=== PATIENT | female | born 1960 | race Caucasian/White ===

== ENCOUNTER → 2017-12-12 10:40 | Outpatient (CLI) | payer BC, SELFPAY ==
[2017-12-12 12:10] LABS: Absolute Lymphocyte Count 1.42 X10^3/ul (0.83-4.51); Absolute Neutrophil Count 3.5 X10^3/uL (2.0-7.7); Basophil# 0.04 X10^3/uL; Basophil% 0.7 % (0-1); Eosinophil# 0.24 X10^3/uL; Eosinophils% 4.3 % (0-5); Hematocrit 42.4 % (37-47); Hemoglobin 14.1 g/dl (12.0-15.0); Lymphocyte # 1.42 X10^3/ul (4.0); Lymphocyte % 25.4 % (19-41); Mean Corp Hgb Conc 33.3 g/gl (32-36); Mean Corpuscular Volume 84.3 fL (81-99); Mean Platelet Vol. 11.1 fl (6.2-12.0); Monocyte% 7.2 % (0-10); Neutrophil # 3.48 X10^3/uL (2.7-7.7); Neutrophil % 62.2 % (47-70); Platelet Count 282 K/mm3 (150-450); RBC Distribution Width CV 14.8 % (11.6-14.6); RBC Distribution Width SD 44.6 fl (35.1-43.9); Red Blood Count 5.03 M/mm3 (4.2-5.4); White Blood Count 5.6 K/mm3 (4.4-11.0)
[2017-12-12 12:13] LABS: POSITIVE COUNT NO; POSITIVE DIFFERENTIAL NO; POSITIVE MORPHOLOGY NO
[2017-12-12 12:14] LABS: Erythrocyte Sedimentation Rate 8 mm/hr (0-30)
[2017-12-12 12:44] LABS: CRP 4.51 mg/L (0.0-3.0); Hemoglobin A1c 5.8 % (4.2-6.3); Rheumatoid Factor < 10.0 IU/mL (<15); T4 Free Direct 1.02 ng/dL (0.76-1.46); Thyroid Stim Hormone (TSH) 1.64 uIU/mL (0.358-3.74)
[2017-12-12 12:46] LABS: Vitamin B12 625 pg/mL (211-911); Vitamin D,25 Hydroxy 29.8 ng/mL (29.95-100.01)
[2017-12-14 11:07] LABS: ANTINUCLEAR ANTIBODIES DIRECT Negative (Negative)
[2017-12-14 12:35] LABS: CCP IgG Antibodies 6 units (0-19)
== END ==
PROVIDERS: Visit Provider Family Medicine
DX: M06.4 Inflammatory polyarthropathy (principal); R73.01 Impaired fasting glucose; G62.9 Polyneuropathy, unspecified
CPT/HCPCS: 36415; 82306; 82607; 83036; 84439; 84443; 85025; 85652; 86038; 86140; 86200; 86225; 86235; 86431

== ENCOUNTER → 2018-08-16 | Outpatient (CLI) | payer BC, SELFPAY ==
--- NOTE | 2018-08-16 12:30 | RAD_ITS ---
STUDY: X-RAY CHEST REASON FOR EXAM: Female, 58 years old. Right-sided pleuritic chest pain TECHNIQUE: PA and lateral views of the chest. COMPARISON: None. FINDINGS: The lungs are clear and expanded. There is no demonstrated pleural abnormality. Normal size heart. Normal mediastinum and colt. Normal visualized pulmonary arteries. Normal visualized aortic arch and descending thoracic aorta. Normal visualized thoracic spine. Normal visualized ribs, clavicles, and shoulders. There is no demonstrated abnormality of the visualized soft tissue structures of the upper abdomen. RAD/Chest PA and Lateral IMPRESSION: Normal x-ray examination of the chest. Electronically Signed: Hong Simmons MD at 17:47 EDT , Service support ,
== END | disposition home or self-care (01) ==
LOC: MTRAD 12:26
PROVIDERS: Family Provider Family Medicine; PCP Family Medicine; Referring Provider Family Medicine; Visit Provider Family Medicine
DX: R07.9 Chest pain, unspecified (principal); R05 Cough
CPT/HCPCS: 71046

== ENCOUNTER → 2019-11-17 13:51 | Outpatient (CLI) | payer BC, SELFPAY ==
[2019-11-17 15:24] LABS: Absolute Lymphocyte Count 1.69 X10^3/uL (0.83-4.51); Absolute Neutrophil Count 6.1 X10^3/uL (2.0-7.7); Basophil# 0.04 X10^3/uL; Basophil% 0.5 % (0-1); Eosinophil# 0.36 X10^3/uL; Eosinophils% 4.1 % (0-5); Hematocrit 44.4 % (37-47); Hemoglobin 14.1 g/dL (12.0-15.0); Lymphocyte # 1.69 X10^3/ul (4.0); Lymphocyte % 19.4 % (19-41); Mean Corp Hgb Conc 31.8 g/dL (32-36); Mean Corpuscular Hgb 26.8 pg (27.0-32.0); Mean Corpuscular Volume 84.3 fL (81-99); Mean Platelet Vol. 10.8 fl (6.2-12.0); Monocyte# 0.55 X10^3/uL; Monocyte% 6.3 % (0-10); NRBC Flagged by Analyzer 0 % (0-5); Neutrophil # 6.05 X10^3/uL (2.7-7.7); Neutrophil % 69.4 % (47-70); Platelet Count 308 K/mm3 (150-450); RBC Distribution Width CV 14.6 % (11.6-14.6); RBC Distribution Width SD 44.5 fl (35.1-43.9); Red Blood Count 5.27 M/mm3 (4.2-5.4); White Blood Count 8.7 K/mm3 (4.4-11.0)
[2019-11-17 15:42] LABS: Erythrocyte Sedimentation Rate 16 mm/hr (0-30)
[2019-11-17 16:02] LABS: CRP 5.64 mg/L (0.0-3.0); Rheumatoid Factor < 10.0 IU/mL (<15); Thyroid Stim Hormone (TSH) 2.18 uIU/mL (0.358-3.74)
[2019-11-19 08:14] LABS: Vitamin D,25 Hydroxy 45.4 ng/mL
[2019-11-19 12:07] LABS: Anti-Centromere B Ab <0.2 AI (0.0-0.9); Anti-Chromatin <0.2 AI (0.0-0.9); Anti-Jo <0.2 AI (0.0-0.9); Anti-Scleroderma-70 AB <0.2 AI (0.0-0.9); RNP Ab <0.2 AI (0.0-0.9); SJOGREN'S Anti-SS-A test < 0.2 AI (0.0-0.9); SJOGREN'S Anti-SS-B test < 0.2 AI (0.0-0.9); Smith Ab <0.2 AI (0.0-0.9)
[2019-11-19 14:38] LABS: Anti-dsDNA Ab <1 IU/mL (0-9)
[2019-11-20 05:11] LABS: CCP IgG Antibodies 7 units (0-19)
== END ==
PROVIDERS: PCP Family Medicine; Visit Provider Family Medicine
DX: M06.4 Inflammatory polyarthropathy (principal); E55.9 Vitamin D deficiency, unspecified; R53.83 Other fatigue
CPT/HCPCS: 36415; 82306; 84443; 85025; 85652; 86140; 86200; 86225; 86235; 86431

== ENCOUNTER → 2021-11-23 | Outpatient (CLI) | payer OTHER, SELFPAY ==
[2021-11-23 12:09] LABS: Absolute Lymphocyte Count 1.38 X10^3/uL (0.83-4.51); Absolute Neutrophil Count 3.5 X10^3/uL (2.0-7.7); Basophil# 0.05 X10^3/uL; Basophil% 0.9 % (0-1); Eosinophil# 0.33 X10^3/uL; Eosinophils% 5.8 % (0-5); Hematocrit 43.2 % (37-47); Hemoglobin 14.4 g/dL (12.0-15.0); Lymphocyte # 1.38 X10^3/ul (0.83-4.51); Lymphocyte % 24.1 % (19-41); Mean Corp Hgb Conc 33.3 g/dL (32-36); Mean Corpuscular Hgb 28.2 pg (27.0-32.0); Mean Corpuscular Volume 84.7 fL (81-99); Mean Platelet Vol. 11.1 fl (6.2-12.0); Monocyte# 0.41 X10^3/uL; Monocyte% 7.2 % (0-10); NRBC Flagged by Analyzer 0 % (0-5); Neutrophil # 3.53 X10^3/uL (2.7-7.7); Neutrophil % 61.7 % (47-70); Platelet Count 298 K/mm3 (150-450); RBC Distribution Width SD 46.4 fl (35.1-43.9); White Blood Count 5.7 K/mm3 (4.4-11.0)
[2021-11-23 12:20] LABS: Anion Gap 5 (5-15); BUN 14 mg/dL (7-18); BUN/Creat Ratio 16.5 RATIO (10-20); Chloride 109 mmol/L (98-107); Creatinine, Serum 0.85 mg/dL (0.55-1.02); EST Glomerular Filtration Rate 72 mL/min (>60); Est Glom Filt Rate - Afr Amer 87 mL/min (>60); Glucose 97 mg/dL (74-106); Potassium 4.4 mmol/L (3.5-5.1); Sodium Level 142 mmol/L (136-145)
[2021-11-23 12:23] LABS: Vitamin D,25 Hydroxy 51.4 ng/mL
== END | disposition home or self-care (01) ==
LOC: BFHLAB 10:01
PROVIDERS: PCP Family Medicine; Visit Provider Family Medicine
DX: I10 Essential (primary) hypertension (principal); R73.01 Impaired fasting glucose; E55.9 Vitamin D deficiency, unspecified
CPT/HCPCS: 36415; 80048; 82306; 85025

== ENCOUNTER → 2022-04-19 | Outpatient (CLI) | payer OTHER, SELFPAY ==
[2022-04-19 12:48] LABS: Absolute Lymphocyte Count 1.61 X10^3/uL (0.83-4.51); Absolute Neutrophil Count 3.8 X10^3/uL (2.0-7.7); Basophil# 0.05 X10^3/uL; Basophil% 0.8 % (0-1); Eosinophil# 0.26 X10^3/uL; Eosinophils% 4.2 % (0-5); Hemoglobin 14.1 g/dL (12.0-15.0); Lymphocyte # 1.61 X10^3/ul (0.83-4.51); Mean Corpuscular Hgb 27.2 pg (27.0-32.0); Mean Corpuscular Volume 84.8 fL (81-99); Mean Platelet Vol. 10.9 fl (6.2-12.0); Monocyte# 0.48 X10^3/uL; Monocyte% 7.7 % (0-10); NRBC Flagged by Analyzer 0 % (0-5); Neutrophil # 3.79 X10^3/uL (2.7-7.7); Neutrophil % 61.1 % (47-70); Platelet Count 295 K/mm3 (150-450); RBC Distribution Width CV 14.6 % (11.6-14.6); RBC Distribution Width SD 45.2 fl (35.1-43.9); Red Blood Count 5.19 M/mm3 (4.2-5.4); White Blood Count 6.2 K/mm3 (4.4-11.0)
[2022-04-19 13:00] LABS: ALB/GLOB Ratio 1.1 RATIO (0.9-2.4); AST(SGOT) 30 U/L (15-37); Alanine Aminotransfer ALT/SGPT 55 U/L (13-56); Albumin, Serum 3.8 g/dL (3.2-5.0); Alkaline Phosphatase 116 U/L (45-117); Anion Gap 6 (5-15); BUN 14 mg/dL (7-18); BUN/Creat Ratio 17.4 RATIO (10-20); Calcium,Total 9.2 mg/dL (8.5-10.1); Chloride 109 mmol/L (98-107); Cholesterol 170 mg/dL (200); Creatinine, Serum 0.81 mg/dL (0.55-1.02); EST Glomerular Filtration Rate 76 mL/min (>60); Est Glom Filt Rate - Afr Amer 92 mL/min (>60); Globulin 3.6 g/dL (2.2-4.2); Glucose 92 mg/dL (74-106); High Density Lipoprotein 51 mg/dL; Potassium 3.9 mmol/L (3.5-5.1); Protein, Total 7.4 g/dL (6.4-8.2); Sodium Level 141 mmol/L (136-145); Triglycerides 160 mg/dL; Very Low Density Lipoprotein 32 mg/dL (5-40)
[2022-04-19 13:25] LABS: Hemoglobin A1c 5.7 % (3.8-5.6)
== END | disposition home or self-care (01) ==
LOC: BIMLAB 10:22
PROVIDERS: PCP Internal Medicine; Referring Provider Internal Medicine; Visit Provider Internal Medicine
DX: I10 Essential (primary) hypertension (principal); R73.03 Prediabetes
CPT/HCPCS: 36415; 80053; 80061; 83036; 85025

== ENCOUNTER → 2023-05-21 | Outpatient (CLI) | payer OTHER, SELFPAY ==
[2023-05-21 12:11] LABS: Absolute Lymphocyte Count 1.35 X10^3/uL (0.83-4.51); Absolute Neutrophil Count 3.9 X10^3/uL (2.0-7.7); Basophil# 0.05 X10^3/uL; Basophil% 0.8 % (0-1); Eosinophil# 0.19 X10^3/uL; Eosinophils% 3.1 % (0-5); Hemoglobin 14.2 g/dL (12.0-15.0); Lymphocyte # 1.35 X10^3/ul (0.83-4.51); Mean Corp Hgb Conc 32.3 g/dL (32-36); Mean Corpuscular Hgb 27.2 pg (27.0-32.0); Mean Corpuscular Volume 84.3 fL (81-99); Mean Platelet Vol. 11.2 fl (6.2-12.0); Monocyte# 0.53 X10^3/uL; Monocyte% 8.6 % (0-10); NRBC Flagged by Analyzer 0 % (0-5); Neutrophil # 3.93 X10^3/uL (2.7-7.7); Neutrophil % 64.2 % (47-70); Platelet Count 294 K/mm3 (150-450); RBC Distribution Width CV 14.6 % (11.6-14.6); Red Blood Count 5.22 M/mm3 (4.2-5.4); White Blood Count 6.1 K/mm3 (4.4-11.0)
[2023-05-21 12:58] LABS: ALB/GLOB Ratio 1.2 RATIO (0.9-2.4); AST(SGOT) 26 U/L (15-37); Alanine Aminotransfer ALT/SGPT 42 U/L (13-56); Albumin, Serum 3.8 g/dL (3.2-5.0); Alkaline Phosphatase 111 U/L (45-117); Anion Gap 5 (5-15); BUN 17 mg/dL (7-18); BUN/Creat Ratio 19.7 RATIO (10-20); Calcium,Total 8.9 mg/dL (8.5-10.1); Chloride 109 mmol/L (98-107); Cholesterol 170 mg/dL (200); Creatinine, Serum 0.86 mg/dL (0.55-1.02); EST Glomerular Filtration Rate 70 mL/min (>60); Est Glom Filt Rate - Afr Amer 85 mL/min (>60); Globulin 3.2 g/dL (2.2-4.2); Glucose 94 mg/dL (74-106); High Density Lipoprotein 52 mg/dL; Potassium 4.1 mmol/L (3.5-5.1); Sodium Level 140 mmol/L (136-145); Triglycerides 152 mg/dL; Very Low Density Lipoprotein 30 mg/dL (5-40)
== END | disposition home or self-care (01) ==
LOC: BIMLAB 10:29
PROVIDERS: PCP Internal Medicine; Referring Provider Internal Medicine; Visit Provider Internal Medicine
DX: I10 Essential (primary) hypertension (principal)
CPT/HCPCS: 36415; 80053; 80061; 85025

== ENCOUNTER 2023-06-27 08:55 | Day surgery (SDC) | payer OTHER, SELFPAY ==
[2023-06-27 09:26] VITALS: BP 132/67; PULSE 76; RESP 18; TEMP 36.7; O2SAT 98; BMI 36.9
[2023-06-27] MEDS: Lactated Ringers 1,000 ML 15 ML IV (09:38)
--- NOTE | 2023-06-27 09:44 | PCM.HP.STD ---
[facility] - General General Date of Admission: 06/27/23 Date of Service: 06/27/23 Chief Complaint: Screening colonoscopy HPI Narrative STUART MCCLURE, is a 63 F who presents today for screening colonoscopy. She has a past medical history of obesity type 2 diabetes and mild gastroesophageal reflux disease. She had a colonoscopy over 10 years ago and it was normal. She comes back in today for screening colonoscopy. She not have any nausea, vomiting or diarrhea. She denies any bleeding per rectum. [facility] Medical History (Updated 06/22/23 @ 14:48 by Ev Medley) Wears glasses Post-menopausal Restless legs Back pain Leg cramps Non-smoker Hypertension History of hiatal hernia Health care maintenance Hypersomnolence Colon cancer screening Obesity (BMI 30-39.9) Borderline type 2 diabetes mellitus Pelvic floor repair affecting GERD (gastroesophageal reflux disease) Home Medications ?Medication ?Instructions ?Recorded ?Last Taken ?Type calcium carbonate (Calcium 600) 600 mg PO DAILY 04/19/22 06/23/23 History cholecalciferol (vitamin D3) 50 50 mcg PO DAILY 04/19/22 06/23/23 History mcg (2,000 unit) capsule multivitamin (Daily Multi-Vitamin 1 tab PO DAILY 04/19/22 06/23/23 History tablet) amlodipine 10 mg tablet 10 mg PO DAILY #90 tabs 11/17/22 06/27/23 06:40 Rx trazodone 50 mg tablet 50 mg PO QHS PRN insomnia #90 tabs 11/17/22 06/26/23 22:00 Rx B-complex with vitamin C 1 cap PO DAILY 05/08/23 06/23/23 History aspirin 325 mg tablet 325 mg PO Q8H PRN PRN pain 05/08/23 Unknown History famotidine 20 mg tablet 20 mg PO QHS 06/22/23 06/26/23 19:00 History Allergy/AdvReac Type Severity Reaction Status Date / Time pistachio nut Allergy Intermediate Itching Verified 06/27/23 09:19 Family History Grandmother Diabetes CVA (cerebral vascular accident) Father Myocardial infarction Heart disease Skin cancer Daughter Seizures Mother CVA (cerebral vascular accident) Grandfather CVA (cerebral vascular accident) Other Cancer Surgical History (Updated 06/22/23 @ 14:48 by Ev Medley) Hx of esophagogastroduodenoscopy Hx of colonoscopy H/O: hysterectomy H/O hernia repair Social History household members: spouse current occupational status: retired Smoking Status: Never smoker alcohol intake: never substance use type: does not use what type of physical activity do you participate in: none ROS Review of Systems ROS Unobtainable: other Constitutional Constitutional: Denies fatigue, fever(s), poor appetite, weight gain or weight loss ENT HEENT: Denies mouth lesions Cardiovascular Cardiovascular: Denies abdominal bloating, abdominal edema or abdominal pain Respiratory/Chest Respiratory/Chest: Denies change in mental status, change in phlegm color, chest congestion or chest tightness Gastrointestinal Gastrointestinal: Denies belching, bloating, change in bowel habits, change in stool character, chewing difficulty, coffee ground emesis, constipation, cramping, diarrhea, dyspepsia, dysphagia, early satiety, excessive flatus, fecal incontinence, heartburn, hematemesis, hematochezia, hemorrhoids, loose stools, melena, nausea, odynophagia, rectal bleeding, tenesmus, vomiting or weight changes Genitourinary Genitourinary: Denies abdominal discomfort, burning urination or itching Musculoskeletal Musculoskeletal: Reports as per HPI; Denies muscle weakness or myalgias Integumentary Integumentary: Denies jaundice Neurologic Neurologic: Denies lack of coordination or weakness Psychiatric Psychiatric: Denies confusion, depression, memory loss, mood swings, paranoia or suicidal ideation Endocrine Endocrinology: Denies systems reviewed and no addt'l complaints, except as documented Hematologic/Lymphatic Hematologic/Lymphatic: Denies anemia, easy bleeding, easy bruising or lymphadenopathy Allergic/Immunologic Allergic/Immunologic: Denies systems reviewed and no addt'l complaints, except as documented Vital Signs Vital Signs Vital Signs: 06/27/23 09:25 06/27/23 09:26 Temperature 98.1 F Temperature Source Temporal Pulse Rate 76 Respiratory Rate 18 Respiratory Pattern Normal Blood Pressure 132/67 H Blood Pressure Mean 88 Blood Pressure Source Monitor Blood Pressure Position Semi-Fowlers Blood Pressure Location Left Arm Pulse Ox 98 Oxygen Delivery Method Room Air Weight Weight: 189 lb Body Mass Index (BMI) 36.9 Physical Exam Const alert General Appearance: cooperative Orientation / Consciousness: oriented to person HEENT hearing grossly normal bilaterally Head and Scalp: normal to inspection Face and Sinus: face symmetric Nose: external nose normal Mouth: oral and palatal mucosa normal Eyes conjunctivae normal General Eye: normal appearance of both eyes Neck full ROM General: normal visual inspection Lymph Lymphatic: no lymphadenopathy noted Chest inspection of chest normal and palpation of chest normal Chest: symmetrical chest wall rise Resp normal respiratory effort Effort and Inspection: able to speak in complete sentences Cardio regular rate GI non-distended Percussion: normal to percussion Rectal Exam: deferred Neuro Speech: speech normal Gait (Neuro): normal gait Assessment & Plan Assessment/Plan (1) Encounter for screening for malignant neoplasm of colon: PLAN: She was explained alternatives, risk, benefits include not withstanding bleeding, infection, sepsis, perforation, need for emergent urgent . She will have an ASA of 3.
--- NOTE | 2023-06-27 10:00 | COLBX_PTH ---
PATIENT: STUART MCCLURE LOC: EN U#:[id number] AGE/SX: 63/F ROOM: RE06/27/[address]: Dr. Robert Ricketts DO : 1960 BED: DIS: 06/27/2023 SPEC #: [id number] RECD: 06/27/23 10:51 STATUS: MARIA EUGENIA MORALES #: [id number] LETY: 06/27/23 10:[address]: Robert Ricketts DEPT: SURGICAL PATHOLOGY RECD BY: Rema Olivarez ENTERED: 06/27/23 12:22 SP TYPE: COLON BX OTHR DR: Dr. Savana Bean MD Tissues: Cecum, NOS Procedures: Surgery Specimen Level IV HEADER OPERATION: Colonoscopy PRE-OP DIAGNOSIS: Encounter for screening for malignant neoplasm of colon TISSUE SUBMITTED: Cecal polyp biopsy MICROSCOPIC DIAGNOSIS Cecal polyp, biopsy: Fragments of benign polypoid colonic mucosa. See comment. LENARD/ 06/28/2023 COMMENT Neither hyperplastic nor adenomatous change is identified. Clinical correlation is suggested. MICROSCOPIC DESCRIPTION Slides are reviewed. GROSS DESCRIPTION Received in fixative is one container labeled with the patient's name and designated Ceceal polyp biopsy. The specimen consists of two irregular fragments of light carter soft tissue that in aggregate measure 0.6 x 0.3 x 0.1 cm. The specimen is totally submitted in one cassette. CODY/ 06/27/2023 TC:5 CPT:02095
[2023-06-27 10:18] VITALS: BP 127/81; BP 132/67; PULSE 82; RESP 16; TEMP 36.5; O2SAT 97
--- NOTE | 2023-06-27 10:19 | OP.CCLET_ITS ---
06/27/2023 Savana Bean MD [address] [place] [address] [place] [address] Re : Colonoscopy procedure for Sary Wilson Dear Dr. Bean This procedure was performed on Tuesday, June 27, 2023. My impressions and recommendations are as follows: Impressions : - Diverticulosis in the recto-sigmoid colon and in the sigmoid colon. - One 5 mm polyp in the cecum, removed with a jumbo cold forceps. Resected and retrieved. Recommendations : - Repeat colonoscopy in 5 years for surveillance. - Continue present medications. My findings are described in the full procedure note, which is enclosed. If I can be of further assistance, please feel free to contact me at . Sincerely, Robert Ricketts, 06/27/2023 10:18:42 AM This report has been signed electronically.
--- NOTE | 2023-06-27 10:19 | OP.COLON_ITS ---
Patient Name: Sary Wilson Procedure Date: 06/27/2023 9:47 AM Date of : 1960 Age: 63 Procedure: Colonoscopy Indications: Screening for colorectal malignant neoplasm Providers: Robert Ricketts DO Referring MD: Savana Bean MD Medicines: Monitored Anesthesia Care Patient Profile: This is a 63 year old female. Refer to note in patient chart for documentation of history and physical. Last Colonoscopy: more than 10 years ago. Complications: No immediate complications. Procedure: Pre-Anesthesia Assessment: - Prior to the procedure, a History and Physical was performed, and patient medications and allergies were reviewed. The patient is competent. The risks and benefits of the procedure and the sedation options and risks were discussed with the patient. All questions were answered and informed consent was obtained. Patient identification and proposed procedure were verified by the physician in the pre-procedure area. Mental Status Examination: alert and oriented. Airway Examination: normal oropharyngeal airway and neck mobility. Respiratory Examination: clear to auscultation. CV Examination: normal. Prophylactic Antibiotics: The patient does not require prophylactic antibiotics. Prior Anticoagulants: The patient has taken no anticoagulant or antiplatelet agents. ASA Grade Assessment: II - A patient with mild systemic disease. After reviewing the risks and benefits, the patient was deemed in satisfactory condition to undergo the procedure. The anesthesia plan was to use monitored anesthesia care (MAC). Immediately prior to administration of medications, the patient was re-assessed for adequacy to receive sedatives. The heart rate, respiratory rate, oxygen saturations, blood pressure, adequacy of pulmonary ventilation, and response to care were monitored throughout the procedure. The physical status of the patient was re-assessed after the procedure. After I obtained informed consent, the scope was passed under direct vision. Throughout the procedure, the patient's blood pressure, pulse, and oxygen saturations were monitored continuously. The colonoscope was introduced through the anus and advanced to the cecum, identified by appendiceal orifice and ileocecal valve. The colonoscopy was performed without difficulty. The patient tolerated the procedure well. The quality of the bowel preparation was adequate. The ileocecal valve, appendiceal orifice, and rectum were photographed. Scope In: 9:59:00 AM Scope Withdrawal Time 0 hours 10 minutes 3 seconds Scope Out: 10:12:19 AM Total Procedure Duration Time 0 hours 13 minutes 19 seconds Findings: The perianal and digital rectal examinations were normal. A few small and large-mouthed diverticula were found in the recto-sigmoid colon and sigmoid colon. A 5 mm polyp was found in the cecum. The polyp was sessile. The polyp was removed with a jumbo cold forceps. Resection and retrieval were complete. Verification of patient identification for the specimen was done. Estimated blood loss was minimal. Impression: - Diverticulosis in the recto-sigmoid colon and in the sigmoid colon. - One 5 mm polyp in the cecum, removed with a jumbo cold forceps. Resected and retrieved. Recommendation: - Repeat colonoscopy in 5 years for surveillance. - Continue present medications. Procedure Code(s): --- Professional --- 77019, Colonoscopy, flexible; with biopsy, single or multiple CPT copyright 2021 [employer]. All rights reserved. The codes documented in this report are preliminary and upon sugar cane planter machine operator review may be revised to meet current compliance requirements. Robert Ricketts DO 06/27/2023 10:18:42 AM This report has been signed electronically. Number of Addenda: 0 Note Initiated On: 06/27/2023 9:47 AM
[2023-06-27 10:20] VITALS: BP 125/80; BP 132/67; PULSE 80; RESP 16; O2SAT 97
[2023-06-27 10:25] VITALS: BP 128/79; BP 132/67; PULSE 73; RESP 16; O2SAT 98
[2023-06-27 10:30] VITALS: BP 111/81; BP 132/67; PULSE 74; RESP 16; TEMP 36.3; O2SAT 96
[2023-06-27 10:46] VITALS: BP 132/67
== END 2023-06-27 10:52 | disposition home or self-care (01) ==
LOC: EN 08:57 → AC 08:59
PROVIDERS: PCP Internal Medicine; Referring Provider Internal Medicine; Visit Provider Internal Medicine Gastroenterology
PROC: 0DJD8ZZ Inspection of Lower Intestinal Tract, Via Natural or Artificial Opening Endoscopic (ICD-10-PCS; CPT 45378; principal; 2023-06-27 09:55)
DX: Z12.11 Encounter for screening for malignant neoplasm of colon (principal); E11.9 Type 2 diabetes mellitus without complications; K57.30 Diverticulosis of large intestine without perforation or abscess without bleeding; Z79.82 Long term (current) use of aspirin; K21.9 Gastro-esophageal reflux disease without esophagitis; I10 Essential (primary) hypertension; Z79.899 Other long term (current) drug therapy; Z90.710 Acquired absence of both cervix and uterus; D12.0 Benign neoplasm of cecum
CPT/HCPCS: 45380; 88305; J7120

== ENCOUNTER → 2023-11-19 | Outpatient (CLI) | payer OTHER, SELFPAY ==
[2023-11-19 12:12] LABS: Absolute Lymphocyte Count 1.35 X10^3/uL (0.83-4.51); Absolute Neutrophil Count 6.2 X10^3/uL (2.0-7.7); Basophil# 0.06 X10^3/uL; Basophil% 0.7 % (0-1); Eosinophil# 0.28 X10^3/uL; Eosinophils% 3.3 % (0-5); Hematocrit 45.2 % (37-47); Hemoglobin 14.3 g/dL (12.0-15.0); Lymphocyte # 1.35 X10^3/ul (0.83-4.51); Lymphocyte % 15.9 % (19-41); Mean Corp Hgb Conc 31.6 g/dL (32-36); Mean Corpuscular Volume 85.3 fL (81-99); Mean Platelet Vol. 11.2 fl (6.2-12.0); Monocyte# 0.59 X10^3/uL; Monocyte% 6.9 % (0-10); NRBC Flagged by Analyzer 0 % (0-5); Neutrophil # 6.19 X10^3/uL (2.7-7.7); Platelet Count 283 K/mm3 (150-450); RBC Distribution Width SD 43.7 fl (35.1-43.9); White Blood Count 8.5 K/mm3 (4.4-11.0)
[2023-11-19 12:37] LABS: ALB/GLOB Ratio 1.1 RATIO (0.9-2.4); AST(SGOT) 20 U/L (15-37); Alanine Aminotransfer ALT/SGPT 35 U/L (13-56); Albumin, Serum 3.8 g/dL (3.2-5.0); Alkaline Phosphatase 127 U/L (45-117); Anion Gap 7 (5-15); BUN 17 mg/dL (7-18); BUN/Creat Ratio 20.3 RATIO (10-20); Calcium,Total 9.3 mg/dL (8.5-10.1); Chloride 110 mmol/L (98-107); Creatinine, Serum 0.84 mg/dL (0.55-1.02); EST Glomerular Filtration Rate 73 mL/min (>60); Est Glom Filt Rate - Afr Amer 88 mL/min (>60); Globulin 3.6 g/dL (2.2-4.2); Glucose 105 mg/dL (74-106); Potassium 3.9 mmol/L (3.5-5.1); Protein, Total 7.4 g/dL (6.4-8.2); Sodium Level 141 mmol/L (136-145)
== END | disposition home or self-care (01) ==
LOC: BIMLAB 10:23
PROVIDERS: PCP Internal Medicine; Referring Provider Internal Medicine; Visit Provider Internal Medicine
DX: I10 Essential (primary) hypertension (principal)
CPT/HCPCS: 36415; 80053; 85025

== ENCOUNTER → 2023-12-04 | Outpatient (CLI) | payer OTHER, SELFPAY | END | disposition home or self-care (01) | LOC: SL 19:58 | PROVIDERS: PCP Internal Medicine; Visit Provider Internal Medicine | DX: G47.10 Hypersomnia, unspecified (principal) | CPT/HCPCS: 95810 ==

== ENCOUNTER → 2023-12-20 | Outpatient (CLI) | payer OTHER, SELFPAY | END | disposition home or self-care (01) | LOC: SL 10:16 | PROVIDERS: PCP Internal Medicine; Referring Provider Nurse Practitioner Acute Care; Visit Provider Nurse Practitioner Acute Care | DX: Z00.00 Encounter for general adult medical examination without abnormal findings (principal) ==

== ENCOUNTER → 2024-10-27 | Outpatient (CLI) | payer MEDICARE, OTHER, SELFPAY ==
[2024-10-27 12:08] LABS: Hematocrit 42.5 % (37-47); Hemoglobin 13.6 g/dL (12.0-15.0); Immature Granulocytes Count 0.020 X10^3/uL (0.0-0.0); Mean Corp Hgb Conc 32.0 g/dL (32-36); Mean Corpuscular Volume 85.5 fL (81-99); Mean Platelet Vol. 11.3 fl (6.2-12.0); NRBC Flagged by Analyzer 0 % (0-5); Platelet Count 262 K/mm3 (150-450); RBC Distribution Width CV 14.6 % (11.6-14.6); RBC Distribution Width SD 45.3 fl (35.1-43.9); Red Blood Count 4.97 M/mm3 (4.2-5.4); White Blood Count 6.1 K/mm3 (4.4-11.0)
[2024-10-27 12:54] LABS: AST(SGOT) 26 U/L (<=31); Alanine Aminotransfer ALT/SGPT 33 U/L (<=34); Albumin, Serum 4.0 g/dL (3.4-4.8); Alkaline Phosphatase 119 U/L (35-104); Anion Gap 10 (5-15); BUN 17 mg/dL (4-19); BUN/Creat Ratio 21.4 RATIO (10-20); Calcium,Total 9.1 mg/dL (7.6-11.0); Carbon Dioxide 23.3 mmol/L (21.0-32.0); Chloride 108 mmol/L (98-108); Cholesterol 162 mg/dL (<=200); Globulin 2.5 g/dL (2.2-4.2); Glucose 111 mg/dL (70-99); Low Density Lipoprotein Calc. 89 mg/dL; Potassium 4.3 mmol/L (3.3-5.1); Triglycerides 137 mg/dL; Very Low Density Lipoprotein 27 mg/dL (5-40); cholesterol:hdl ratio screen 3.54
== END | disposition home or self-care (01) ==
LOC: BIMLAB 08:43
PROVIDERS: PCP Internal Medicine; Referring Provider Internal Medicine; Visit Provider Internal Medicine
DX: I10 Essential (primary) hypertension (principal); R73.03 Prediabetes
CPT/HCPCS: 36415; 80053; 80061; 83036; 85025

== ENCOUNTER → 2024-12-09 | Outpatient (CLI) | payer MEDICARE, OTHER, SELFPAY ==
--- NOTE | 2024-12-09 09:42 | BD_ITS ---
PROCEDURE: DEXA BONE DENSITY STUDY 12/09/2024 REASON FOR EXAM: POST MENOPAUSAL F, age 64 y/o . Postmenopausal. TECHNIQUE: Procedure Code: BDDBD Modality: DX Procedure: DEXA BONE DENSITY STUDY COMPARISON: None FINDINGS: BMD and T-SCORES Lumbar spine: 1.211 g/cm2, T-score 1.5 Levels: L1 through L4 Left femoral neck: 0.817 g/cm2, T-score -0.3 Femoral neck comparison data not recommended for monitoring change. Left total hip: 0.933 g/cm2, T-score -0.1 Right femoral neck: 0.775 g/cm2, T-score -0.7 Femoral neck comparison data not recommended for monitoring change. Right total hip: 0.988 g/cm2, T-score 0.4 The World Health Organization has defined the following categories based on bone density: Normal bone density: T-score equal to or greater than -1.0 Osteopenia: T-score between -1.0 and -2.5 Osteoporosis: T-score equal to or less than -2.5 FRAX (or Comparable) Fracture Risk Assessment: 10 Year Probability of Fracture: Major Osteoporotic Fracture: 7.1% Hip Fracture: 0.4% (Note: FRAX is not to be reported in setting of normal range bone density, osteoporosis on DEXA, known history of osteoporosis, prior osteoporotic hip or vertebral fracture, or for any patient undergoing pharmacological treatment for bone loss.) The National Osteoporosis Foundation (NOF) recommends pharmacological treatment for patients with a FRAX 10-year risk of 3% or higher for a hip fracture, or 20% or higher for a major osteoporotic fracture, to prevent osteoporosis and reduce fracture risk. The patient does not meet the pharmacological treatment recommendations for prevention of osteoporosis.
== END | disposition home or self-care (01) ==
PROVIDERS: PCP Internal Medicine; Referring Provider Internal Medicine; Visit Provider Internal Medicine
DX: Z78.0 Asymptomatic menopausal state (principal)
CPT/HCPCS: 77080